=== PATIENT | male | born 1985 | race Caucasian/White ===

== ENCOUNTER 2022-12-21 19:51 | Emergency (ER) | payer OTHER, SELFPAY ==
[2022-12-21 20:10] VITALS: BP 133/84; PULSE 63; RESP 18; TEMP 36.8; O2SAT 100
--- NOTE | 2022-12-21 20:32 | ED.GENADULT ---
HPI - General Adult General Chief complaint: Skin/Abscess/Foreign Body Stated complaint: belief of having shingles Time Seen by Provider: 12/21/22 20:29 History of Present Illness HPI narrative: The patient is a 37-year-old male with no previous history of shingles, presents with a one-week history of a rash in the left mid back region that is radiating to the left lateral aspect of his chest and now to the left inframammary region of his chest, in a dermatomal pattern. It is not painful. It started as itching and then the rash was present which was irritating. It did keep him up at night last night. No purulence or vesicles. No rash elsewhere. No sick contacts. No URI or UTI symptoms. No chest pain or abdominal pain. No dyspnea. No other complaints. Related Data Allergies Allergy/AdvReac Type Severity Reaction Status Date / Time No Known Allergies Allergy Verified 11/10/19 11:04 Review of Systems Review of Systems: All systems reviewed & are unremarkable except as noted in HPI and below Constitutional: Constitutional: Reports no additional constitutional complaints, Denies anorexia, Denies body ache(s), Denies chills, Denies excessive sweating, Denies fatigue, Denies fever(s), Denies frequent falls, Denies headache(s), Denies malaise and Denies poor appetite Eyes: Eyes: Reports no additional eye complaints, Denies blurry vision, Denies change in vision, Denies irritation, Denies itchy eyes and Denies photophobia ENT: Reports system reviewed and no additional complaints, except as documented, Reports Normal hearing present, Denies change in voice, Denies dysphagia, Denies vertigo, Denies dizziness, Denies ear discharge, Denies headache(s), Denies hearing loss, Denies hoarseness, Denies nasal congestion, Denies neck pain, Denies sinus pressure, Denies sore throat and Denies throat swelling Cardiovascular: Cardiovascular: Reports no additional cardiovascular complaints, Denies chest pain, Denies syncope, Denies rapid heart rate, Denies irregular heart rhythm, Denies leg edema, Denies dyspnea and Denies slow heart rate Respiratory: Respiratory: Reports no additional respiratory complaints, Denies cough, Denies dyspnea, Denies stridor and Denies wheezing Gastrointestinal: Gastrointestinal: Reports no additional gastrointestinal complaints, Denies abdominal pain, Denies melena, Denies hematochezia, Denies dysphagia, Denies diarrhea, Denies nausea and Denies vomiting Genitourinary: Genitourinary: Denies hematuria, Denies oliguria, Denies dysuria, Denies flank pain, Denies urinary frequency and Denies urinary urgency Musculoskeletal: Musculoskeletal: Reports no additional musculoskeletal complaints, Denies abnormal gait, Denies back pain, Denies myalgias, Denies arthralgias, Denies joint swelling, Denies limited range of motion, Denies muscle cramps, Denies muscle weakness, Denies neck pain and Denies numbness Integumentary/Breasts: Skin/Breast: Reports system reviewed and no additional complaints, except as docu, Denies breast pain, Denies change in pigmentation, Denies pruritus, Denies erythema, Reports rash and Denies wounds Neurologic: Reports system reviewed and no additional complaints, except as documented, Reports Normal hearing present, Denies Abnormal speech present, Denies abnormal gait, Denies confusion, Denies vertigo, Denies dizziness, Denies syncope, Denies frequent falls, Denies headache(s), Denies focal weakness, Denies numbness and Denies paresthesias Psychiatric: Psychiatric: Reports no additional psychiatric complaints and Denies confusion Endocrine: Endocrine: Reports no additional endocrine complaints, Denies cold intolerance, Denies excessive sweating, Denies fatigue and Denies heat intolerance Hematologic/Lymphatic: Hematologic/Lymphatic: Reports no additional hematologic/lymphatic complaints, Denies easy bleeding and Denies easy bruising Allergic/Immunologic: Allergic/Immunologic: Reports no additional allergic/immuno
[2022-12-21] MEDS: valACYclovir HCL 500 MG TABLET 1000 MG PO (20:53)
== END 2022-12-21 21:00 | disposition home or self-care (01) ==
LOC: CHSED 20:46
PROVIDERS: Emergency Provider Emergency Medicine
DX: B02.9 Zoster without complications (principal); F17.200 Nicotine dependence, unspecified, uncomplicated
CPT/HCPCS: 99283; A9270

== ENCOUNTER 2024-07-13 10:06 | Emergency (ER) | payer OTHER, SELFPAY ==
[2024-07-13 10:17] VITALS: BP 126/96; PULSE 76; RESP 16; TEMP 36.6; O2SAT 100
--- NOTE | 2024-07-13 10:18 | ED.GENADULT ---
HPI - General Adult General Chief complaint: Extremity Injury, Lower Stated complaint: L KNEE/LOWER LEG SWELLING Time Seen by Provider: 07/13/24 10:18 Source: patient, RN notes reviewed and old records reviewed Mode of arrival: ambulatory Limitations: no limitations History of Present Illness HPI narrative: 38 year old male who presents to [facility] with complaints of left leg pain from the inner aspect of his left knee down into the left calf area for 6 days with some minimal warmth and some swelling for the past 2 days to his left lower leg. Patient recently traveled from [place] spending 8 hours in car traveling returning home on the . Patient reports no known family history of blood clotting disorders. Patient is daily smoker. Patient reports that he has taken Tylenol and Ibuprofen for his discomfort, with consistent pain rated 4/10. Patient reports no known injury to his left knee or lower leg. MD complaint: pain left inner knee into left medial side of calf with swelling Onset (ago): day(s) (6 days pain 2 days of swelling lower leg) Location: left and lower extremity (inner knee down into left side of calf) Radiation: other (from inner knee to left medial calf) Severity scale (1-10): 4 Quality: aching Treatments prior to arrival: NSAID and other (Tylenol) Related Data Home Medications Medication Instructions Recorded Confirmed No Home Medications 07/13/24 07/13/24 Allergies Allergy/AdvReac Type Severity Reaction Status Date / Time No Known Allergies Allergy Verified 07/13/24 11:27 Review of Systems Review of Systems: CONSTITUTIONAL: Denies fever, chills, or sweats. EYES: Denies visual changes, redness, or discharge. ENT: Denies rhinorrhea, congestion, sore throat, or otalgia. CARDIOVASCULAR: Denies chest pain, palpitations, or edema. RESPIRATORY: Denies cough or dyspnea. GASTROINTESTINAL: Denies abdominal pain, nausea, vomiting, or diarrhea. GENITOURINARY: Denies dysuria or hematuria. SKIN: Denies rash or itching. MUSCULOSKELETAL: Denies back pain, joint pain, or myalgia Reports tenderness to inner left knee with tenderness down into his left lower leg with some swelling to lower leg. Tenderness to calf area on palpation NEUROLOGIC: Denies headache, numbness, or weakness. PSYCHIATRIC: Denies anxiety or depression. All systems reviewed & are unremarkable except as noted in HPI and below PMFSH Surgical History Surgical History H/O vasectomy Hx of appendectomy Family History Family History Father Diabetes mellitus Family history of gout Hypertension Patient's father is in good health Family history of neuropathy Grandparent Diabetes mellitus Cerebrovascular accident Family history of chronic obstructive pulmonary disease Family history of congestive heart failure Mother Patient's mother is in good health Father Family history of type 2 diabetes mellitus Social History Social History Smoking status: Current every day smoker Alcohol intake: current Comments At time of signature, agree with nursing past medical, surgical, social and family history. There is no relevant family history pertinent to the presenting complaint Exam Narrative: GENERAL: Well-appearing, well-nourished, and in no acute distress. HEAD: Normocephalic, atraumatic. EYES: PERRLA and EOMI. ENT: Nares clear, no rhinorrhea or epistaxis. Mucous membranes moist. NECK: Supple.no lymphadenopathy CHEST: Clear to auscultation. No respiratory distress.SAO2 100% on room air HEART: Regular rate and rhythm. No murmur heard. Normal peripheral pulses. ABDOMEN: Soft, nontender, nondistended, normal active bowel sounds. EXTREMITIES: Normal range of motion. pain to left inner knee down to left inner calf with swelling, positive Ellie's sign, limping gait SKIN: Wa
== END 2024-07-13 10:44 | disposition short-term general hospital (02) ==
PROVIDERS: Emergency Provider Registered Nurse
DX: M79.662 Pain in left lower leg (principal); M25.562 Pain in left knee; F17.200 Nicotine dependence, unspecified, uncomplicated; Z98.52 Vasectomy status
CPT/HCPCS: 99212; G0463

== ENCOUNTER 2024-07-13 11:16 | Emergency (ER) | payer OTHER, SELFPAY ==
--- NOTE | ~2024-07-13 | XR_ITS ---
XR knee LT 3V Ordering provider: Edwin Chatterjee MD History: . knee pain . Comparison: None. FINDINGS: BONES: No acute fracture or dislocation. Bipartite patella is noted. JOINT SPACES: Normal. SOFT TISSUES: Normal. IMPRESSION: No acute osseous abnormality left knee. Bipartite patella. Reviewed, dictated and finalized at location A.
--- NOTE | ~2024-07-13 | US_ITS ---
EXAMINATION:US venous doppler LE LT INDICATION:Left leg swelling TECHNIQUE: Multiple grayscale, color flow and Doppler images of the left lower extremity deep venous systems were obtained and reviewed. COMPARISON:No prior studies for comparison. FINDINGS: The common femoral, superficial femoral and popliteal veins demonstrate normal respiratory variation, augmentation and compressibility. Color flow is also seen within the posterior tibial, pe roneal, greater saphenous and profunda veins. IMPRESSION: 1: No lower extremity deep venous thrombosis. Reviewed, dictated and finalized at location B.
[2024-07-13 11:18] VITALS: BP 134/87; PULSE 63; RESP 18; TEMP 36.8; O2SAT 100
--- NOTE | 2024-07-13 11:31 | PC.NURSE ---
Patient going to ultrasound at this time.
--- NOTE | 2024-07-13 11:43 | PC.NURSE ---
Patient back from ultrasound.
--- NOTE | 2024-07-13 12:24 | ED.EXTPRO ---
HPI - Extremity Problem General Chief complaint: Extremity Problem,Nontraumatic Stated complaint: left lower leg pain Time Seen by Provider: 07/13/24 11:22 History of Present Illness HPI Narrative: 38-year-old male presented to the emergency department for evaluation for left knee pain. Patient began developing left knee pain few days ago and describes point tenderness on the left medial knee. Patient states the pain has continued to worsen. Patient also describes he is having some swelling down that left leg. Patient denies any associated chest pain or shortness of breath. Patient denies any specific incident of fall or injury. Related Data Home Medications Medication Instructions Recorded Confirmed No Home Medications 07/13/24 07/13/24 Allergies Allergy/AdvReac Type Severity Reaction Status Date / Time No Known Allergies Allergy Verified 07/13/24 11:27 Review of Systems Review of Systems: All systems reviewed & are unremarkable except as noted in HPI and below PMFSH Surgical History Surgical History H/O vasectomy Hx of appendectomy Family History Family History Father Diabetes mellitus Family history of gout Hypertension Patient's father is in good health Family history of neuropathy Grandparent Diabetes mellitus Cerebrovascular accident Family history of chronic obstructive pulmonary disease Family history of congestive heart failure Mother Patient's mother is in good health Father Family history of type 2 diabetes mellitus Social History Social History Smoking status: Current every day smoker Alcohol intake: current Exam Narrative: APPEARANCE: Well appearing, no pain, no distress, well-nourished. HEAD: normocephalic, atraumatic. EYES: PERRLA/EOMI, conjunctivae clear. NOSE: Normal no drainage EARS:TMS clear with good light reflex. THROAT: Pharynx clear, no exudate. NECK: Supple. No adenopathy, no masses. RESPIRATORY: Airway patent, respirations nonlabored. Clear to auscultation bilaterally, no rales, rhonchi, wheezing. CARDIOVASCULAR: Regular rate and rhythm without murmurs rubs or gallops. ABDOMINAL: Soft, nontender, nondistended, normal bowel sounds MUSCULOSKELETAL: Moves all extremities. Left medial knee tenderness to palpation, no erythema, no significant edema of the knee, some lower extremity edema, nonpitting. NEURO: Alert. Cranial nerves II through XII intact. Good gait. Good coordination SKIN: Warm, dry. Normal Color PSYCHIATRIC: Normal affect/mood. Course Course Emergency Course: X-ray and DVT study were negative, patient was placed in knee immobilizer provided crutches for limited weight-bearing. Vital Signs Vital signs: Vital Signs Temperature 98.2 F 07/13/24 11:18 Pulse Rate 63 07/13/24 11:18 Respiratory Rate 18 07/13/24 11:18 Blood Pressure 134/87 07/13/24 11:18 Pulse Oximetry 100 07/13/24 11:18 Oxygen Delivery Room Air 07/13/24 11:18 Temperature 98.2 F 07/13/24 11:18 Pulse Rate 63 07/13/24 11:18 Respiratory Rate 18 07/13/24 11:18 Blood Pressure 134/87 07/13/24 11:18 Pulse Oximetry 100 07/13/24 11:18 Oxygen Delivery Room Air 07/13/24 11:18 MDM - Extremity (Nontraumatic) MDM Narrative Medical decision making narrative: 38-year-old male present to the emergency department for evaluation for left leg swelling. Patient was initially sent here for DVT ultrasound was negative. Patient has not yet had any imaging of the left knee. X-rays were negative. Suspect a knee strain. Patient was provided knee immobilizer and crutches for limited weight-bearing. Patient was encouraged close follow-up with primary care physician. Imaging Data Radiologist's impression: Impressions Venous Doppler Study 07/13/24 11:49 IMPRESSION: 1: Amelia alonso
== END 2024-07-13 13:05 | disposition home or self-care (01) ==
PROVIDERS: Emergency Provider Emergency Medicine
DX: M23.92 Unspecified internal derangement of left knee (principal); M79.89 Other specified soft tissue disorders
CPT/HCPCS: 73562; 93971; 99284

== ENCOUNTER 2024-08-04 10:25 | Outpatient (CLI) | payer OTHER, SELFPAY ==
--- NOTE | ~2024-08-04 | MR_ITS ---
EXAMINATION: MR knee LT wo con DATE: 08/04/2024 11:06 INDICATION: Left knee injury with suspected medial meniscal tear presenting with 3 weeks of anteromed ial left knee pain. TECHNIQUE: Magnetic resonance imaging (MRI) of the left knee was performed without intravenous contra st. Sequences included coronal PD-weighted FSE, coronal PD-weighted FS FSE, sagittal T2-weighted FSE , sagittal PD-weighted FS FSE and axial PD weighted fat saturated FSE. COMPARISON: Left knee radiographs dated 07/28/2024 FINDINGS: Medial compartment: Complex tear of the posterior horn of the medial meniscus with tear planes contacting both the superi or and inferior articular surfaces. Articular cartilage is normal. Lateral compartment: Lateral meniscus is normal. Articular cartilage is normal. Patellofemoral compartment: There is a normal variant bipartite patella with likely fibrous synchondrosis between the patella pro per and a superolateral accessory apophyseal center. Articular cartilage is normal and extends across the synchondrosis Ligaments and tendons: Anterior and posterior cruciate ligaments are normal. The medial collateral ligament and fibular bonnie ateral ligament complex are normal. The extensor mechanism is normal. The visualized medial and later al hamstring tendons as well as the iliotibial band are normal. Fluid: Small knee joint effusion. No loose osteochondral bodies identified. Osseous/other: There is minimal increased fluid signal underlying the articular cortex at the posterior margin of th e medial tibial plateau without evident fracture line or overlying chondromalacia suggesting this cou ld represent either posttraumatic bone contusion or minimal reactive edema related to altered stress distribution resulting from the overlying meniscal tear. No fracture or pathologic marrow replacing p rocess. Small low signal intensity bone islands at the medial tibial plateau and inferior patella. IMPRESSION: 1. Complex tear of the posterior horn of the medial meniscus. 2. Normal anatomic variant bipartite patella. Reviewed, dictated and finalized at location A.
== END 2024-08-04 10:26 | disposition home or self-care (01) ==
LOC: MICIMG 10:26
PROVIDERS: PCP Orthopaedic Surgery; Visit Provider Orthopaedic Surgery
DX: S83.232D Complex tear of medial meniscus, current injury, left knee, subsequent encounter (principal); X58.XXXD Exposure to other specified factors, subsequent encounter
CPT/HCPCS: 73721

== ENCOUNTER 2024-08-25 01:00 | Day surgery (SDC) | payer OTHER, SELFPAY ==
--- NOTE | 2024-08-16 15:54 | SUR.PREOP ---
Report to the Outpatient Waiting Room, entrance under the green pavilion located off [facility], at time on date . Planned Procedure Time: .? Time changes happen often and if your time is changed the preop area will call you the afternoon before. - You and your visitor will be asked to self-screen and do not enter if you have any COVID symptoms. Please call surgeon if you need to reschedule. - A mask is optional within the hospital at this time. Patients may have clear liquids (water, carbonated beverages, clear teas, apple juice) until 3 hours prior to surgery with a maximum of 20 ounces. - No food from midnight until time of surgery and no smoking - Infants may have breast milk until 4 hours before surgery, infant formula 6 hours prior to surgery. - Children will be allowed to drink immediately following surgery.? If applicable, please bring a bottle or sippy cup to assist with drinking. Juice, water, soda, and popsicles are readily available.? For infants on formula, please bring formula the day of surgery.? Pacifiers are allowed. Take only the following medications with a SIP of water on the morning of surgery: DO NOT STOP ANY OF YOUR OTHER PRESCRIPTION MEDICATIONS PRIOR TO SURGERY EXCEPT THE FOLLOWING Medications to discontinue per physician Date to take last dose Please no make-up, nail ukrainian, hairspray, perfume, deodorant, or body powder the day of surgery.? No jewelry (including any body piercings) or valuables the day of surgery, leave them at home.? Please take a shower or bath the night before, or the morning of, surgery with an antibacterial soap.? Wear comfortable, loose fitting clothing.? Children are encouraged to wear pajamas. - Jewelry must be removed prior to entering the operating room.? Rings and piercings that are not removed may be cut off. - The hospital will not accept responsibility for valuables.? - Please leave all valuables, including medications, at home the day of surgery. If you are going home after surgery, a licensed package delivery driver must drive you home.? - NO public transportation without another adult if you receive anesthesia. - We recommend that an adult stay with you for 24 hours following discharge. - We also recommend that you do not drive, make important decision, drink alcoholic beverages, or take any drugs that were not prescribed by your health care provider for at least 24 hours after your discharge time. For Pediatric surgeries, we recommend two adults accompany the child home. Follow any additional instructions given to you from your surgeon. Telephone instructions given to and asked if any additional questions and then verbalized understanding. Patient advised to call surgeon office or pre surgery nurse liaison [phone] if any additional questions.
--- NOTE | 2024-08-16 15:58 | SUR.PREOP ---
Report to the Outpatient Waiting Room, entrance under the green pavilion located off [facility], at time 8:30a.m. on date 08/25/2024. Planned Procedure Time: 10:30a.m.? Time changes happen often and if your time is changed the preop area will call you the afternoon before. - You and your visitor will be asked to self-screen and do not enter if you have any COVID symptoms. Please call surgeon if you need to reschedule. - A mask is optional within the hospital at this time. Patients may have clear liquids (water, carbonated beverages, clear teas, apple juice) until 3 hours prior to surgery with a maximum of 20 ounces. - No food from midnight until time of surgery and no smoking - Infants may have breast milk until 4 hours before surgery, infant formula 6 hours prior to surgery. - Children will be allowed to drink immediately following surgery.? If applicable, please bring a bottle or sippy cup to assist with drinking. Juice, water, soda, and popsicles are readily available.? For infants on formula, please bring formula the day of surgery.? Pacifiers are allowed. Take only the following medications with a SIP of water on the morning of surgery: N/A DO NOT STOP ANY OF YOUR OTHER PRESCRIPTION MEDICATIONS PRIOR TO SURGERY EXCEPT THE FOLLOWING Medications to discontinue per physician N/A Date to take last dose N/A Please no make-up, nail amharic, hairspray, perfume, deodorant, or body powder the day of surgery.? No jewelry (including any body piercings) or valuables the day of surgery, leave them at home.? Please take a shower or bath the night before, or the morning of, surgery with an antibacterial soap.? Wear comfortable, loose fitting clothing.? Children are encouraged to wear pajamas. - Jewelry must be removed prior to entering the operating room.? Rings and piercings that are not removed may be cut off. - The hospital will not accept responsibility for valuables.? - Please leave all valuables, including medications, at home the day of surgery. If you are going home after surgery, a licensed star route mail driver must drive you home.? - NO public transportation without another adult if you receive anesthesia. - We recommend that an adult stay with you for 24 hours following discharge. - We also recommend that you do not drive, make important decision, drink alcoholic beverages, or take any drugs that were not prescribed by your health care provider for at least 24 hours after your discharge time. For Pediatric surgeries, we recommend two adults accompany the child home. Follow any additional instructions given to you from your surgeon. Telephone instructions given to Marquez Robbins and asked if any additional questions and then verbalized understanding. Patient advised to call surgeon office or pre surgery nurse liaison [phone] if any additional questions.
[2024-08-16 16:00] VITALS: BMI 25.7
[2024-08-25] VITALS (8 sets, daily range): BP systolic 101–129; BP diastolic 64–94; PULSE 52–69; RESP 12–16; TEMP 36.1–36.2; O2SAT 98–100
--- NOTE | 2024-08-25 07:25 | WPDHPUPDATE1 ---
History and Physical Update Update Date/Time: 08/25/24 07:25 History and Physical has been reviewed, including an updated exam of the patient. There are NO changes in the patient's condition. Risks, benefits, and alternatives have been discussed and questions answered. Patient agrees to proceed with procedure.
[2024-08-25] MEDS: LACTATED RINGERS 1,000 ML 30 ML IV CONT ×2 (07:58→09:45)
[2024-08-25] MEDS: CELECOXIB 200 MG CAPSULE PO (07:58)
[2024-08-25] MEDS: ACETAMINOPHEN 500 MG TABLET 1000 MG PO (07:58)
--- NOTE | 2024-08-25 08:31 | P.PNAN_ITS ---
Anes - Initial Pre Proc Eval Procedure: Operation Date: 08/25/24 09:00 Proposed Procedures p Left Knee Arthroscopy - Ronny Back MD Date/Time: 08/25/24 08:31 Surgeon: Ronny Back MD Pre Op Diagnosis: Left Knee medial meniscal tear Patient Data Age: 39 Gender: M Height: 1.83 m Weight: 90.9 kg Last Vital Signs Temp 96.9 F L 08/25/24 08:08 Pulse 69 08/25/24 08:08 Resp 16 08/25/24 08:08 BP 129/87 08/25/24 08:08 Pulse Ox 99 08/25/24 08:08 O2 Del Method Room Air 08/25/24 08:08 Allergies Allergy/AdvReac Type Severity Reaction Status Date / Time No Known Allergies Allergy Verified 08/25/24 07:19 Home Medications Medication Instructions Recorded Confirmed Type chlorhexidine gluconate 4 % 1 applic topical DAILY #237 mL 08/18/24 Rx topical liquid (Hibiclens) Patient hx anesthesia problems: none Family hx anesthesia problems: none Results Review: All pre-operative results and documents have been reviewed as part of the pre- operative evaluation. [facility] Past Medical History Medical History Wears glasses Surgical History Surgical History H/O vasectomy Hx of appendectomy Family History Family History Father Diabetes mellitus Family history of gout Hypertension Patient's father is in good health Family history of neuropathy Grandparent Diabetes mellitus Cerebrovascular accident Family history of chronic obstructive pulmonary disease Family history of congestive heart failure Mother Patient's mother is in good health Father Family history of type 2 diabetes mellitus Social History Social History Smoking packs per day: 0.75 Smoking cigarettes per day: 15.0 Years smoked: 15 Smoking pack-years: 11.25 Smoking status: Current every day smoker Tobacco type: cigarettes Alcohol intake: current Alcohol use details: 3-4 times a year Substance use type: does not use Living arrangements: with family Occupation/Education: occupation Additional occupation/education comments: [employer] Gender identity (if verbalized by the patient): Male Spiritual care concerns: No Anes - Eval Final PreProcedure Day of Procedure 08/25/24 08:31 Patient weight: overweight Heart: regular rate and rhythm Lungs: clear to auscultation Airway: Mallampati scale and special considerations (Teeth in poor condition, missing several upper. None loose. ) Neurological: alert and oriented Last oral intake: >/= 8 hours ASA classification: II Emergent: no Anesthetic plan: proceed Anesthesia type and monitoring: general LMA and standard monitoring Results Review: All pre-operative results and documents have been reviewed as part of the pre- operative evaluation. Smoker, 3/4 ppd, smoked approx 630 am. Informed Consent: The patient's anesthetic plan and its attendant risks and benefits were discussed with the patient/family/POA. Questions were solicited and answers provided to the satisfaction of the patient/family/POA.
[2024-08-25] MEDS: ceFAZolin 2 GM/D5W 50 ML 2 GM/50 ML BAG IVPB (09:01)
[2024-08-25] MEDS: BUPivacaine HCL 0.5% PF 30 ML VIAL INFILTRATE (09:21)
[2024-08-25] MEDS: KETOROLAC 15 MG/ML VIAL (*BKC) IV PUSH (09:32)
--- NOTE | 2024-08-25 09:41 | W.PM.PROC2 ---
Procedure Note - Detailed Date of Procedure 08/25/24 Pre-op Diagnosis Left Knee medial meniscal tear Post-op Diagnosis Same Procedure Performed LEFT KNEE SCOPE Surgeon Ronny Back MD Anesthesia General Description of Procedure PATIENT WAS TAKEN TO THE OR. LEFT LEG WAS PREPPED AND DRAPED STERILE. TROCARS WERE PLACED IN THE USUAL FASHION. CAMERA WAS INTRODUCED. THERE WAS NO CHONDROMALACIA TO THE PATELLA FEMORAL JOINT. THERE WAS A LOT OF SYNOVITIS IN ALL COMPARTMENTS. THE MEDIAL COMPARTMENT SHOWED MINIMAL CHONDROMALACIA TO THE MEDIAL FEMORAL CONDYLE. THERE WAS A COMPLEX MEDIAL MENISCUS TEAR. THE TEAR WAS RESECTED WITH A BITER AND A SHAVER DOWN TO A SMOOTH BASE. ABOUT 30% OF THE MENISCUS WAS REMOVED. THE ACL WAS INTACT. THE LATERAL MENISCUS WAS NOT TORN. THE LATERAL COMPARTMENT HAD NO CHONDROMALACIA. A SYNOVECTOMY WAS PREFORMED. SYNOVECTOMY WAS PREFORMED IN THE SUPERIOR MEDIAL COMPARTMENT. THE WOUNDS WERE APPROXIMATED WITH 4.0 NYLON. STERILE DRESSING WAS APPLIED. PATIENT WAS EXTUBATED. Estimated Blood Loss 5 Complications No immediate complications Condition Stable Disposition PACU
[2024-08-25] MEDS: oxyCODONE HCL (*CRX) 5 MG TAB IR PO (10:49)
== END 2024-08-25 11:40 | disposition home or self-care (01) ==
PROVIDERS: Visit Provider Orthopaedic Surgery
PROC: (CPT 29870; principal; 2024-08-25 09:00)
DX: S83.232A Complex tear of medial meniscus, current injury, left knee, initial encounter (principal); M94.262 Chondromalacia, left knee; M65.162 Other infective (teno)synovitis, left knee; F17.210 Nicotine dependence, cigarettes, uncomplicated; Z98.890 Other specified postprocedural states; Z82.49 Family history of ischemic heart disease and other diseases of the circulatory system; X58.XXXA Exposure to other specified factors, initial encounter
CPT/HCPCS: 29881; 29876; A9270; J0690; J1100; J1885; J2250; J2405; J2704; J3010; J7120